=== PATIENT | male | born 2000 | race Caucasian/White ===

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

== ENCOUNTER 2018-10-27 20:42 | Emergency (ER) | payer OTHER, SELFPAY ==
[2018-10-27 20:48] VITALS: BP 131/77; PULSE 90; RESP 16; TEMP 36.6; O2SAT 98
--- NOTE | 2018-10-27 21:08 | ED.GENADUL_ITS ---
Discharge Plan Disposition Patient Disposition: HOME Condition: Good Discharge Details Chief Complaint: EyeProblem Clinical Impression: Acute eye pain Primary Care Provider: Pasha Lara ED Provider: Rachael Almaguer Home Meds and New Rx's Prescriptions: Continued ibuprofen 800 MG tablet 800 mg PO Q8H PRN (Reason: Pain) Qty: 15 RF: 0 triamcinolone acetonide [Nasacort] 55 mcg Aerosol,[place] INTRANASAL RF: 0 loratadine 10 mg Tablet 10 mg PO DAILY RF: 0 Discharge Instructions Instructions: Erythromycin (Into the eye), Eye Pain (ED) Additional Instructions: Please wash eye with baby shampoo, keep clean. Please use 1/2 inch erythromycin ointment to the left eye four times daily for the next 5 days. Please follow up with primary care next week for reevaluation. If you develop fevers/chills, increased pain, discharge, change in vision or other new/worsening symptoms please seek care urgently once again. Referrals: Pasha Lara MD [Primary Care Provider] - Medical Decision Making Patient is a 17-year-old male presents today, brought in by his mother, chief complaint of left eye pain. He reports a prior to arrival he was working with metal on a piece of metal that he was welding came back and striking the lateral aspect of the left eye. Mother reports that she did note a small piece of hot metal and was able to remove this for him. He has a small 1 mm blisters to the upper and lower lid at the corner of the eyelid. It does not appear to involve the eye itself. Denies any foreign body sensation. Blisters are slightly inside the eyelid. Fluorescein and tetracaine were used for further exam patient was examined with Wood's lamp. No uptake is noted on the conjunctiva. I do not see evidence of remnant foreign body. She will be placed prophylactically on erythromycin ophthalmic ointment. Duration how to apply this was discussed by nursing staff. He was given strict return precautions. Advise follow-up with lidar technician next week for reevaluation. Tetanus will be updated today. All other questions and concerns were addressed and they are in agreement this plan peer HPI General Mode of arrival: ambulatory . Date/Time Provider Initiated Documentation: 10/27/18 21:08 . Limitations to Documentation: no limitations . Information obtained by: patient, family (mother and brother) and RN notes reviewed . History of Present Illness 17 year old M presents to the emergency department with the chief complaint of left eye pain, described as moderate, with intensity rated at 6. Quality is described as burning, and is localized to the eyes. Patient reports no radiation. Patient started experiencing this minute(s) and it has been constant. No relieving factors improve symptom(s), No exacerbating factors reported . Patient notes no other symptoms.. Patient did receive the following treatments prior to arrival, other (FB noted on lateral eye lid removed by mother) Related Data Home Medications Medication Instructions Recorded Confirmed ibuprofen 800 mg PO Q8H PRN #15 tablet 12/17/16 12/08/17 loratadine 10 mg PO DAILY 10/27/18 10/27/18 triamcinolone acetonide [Nasacort] INTRANASAL 10/27/18 Previous Rx's Medication Instructions Recorded ibuprofen 800 mg PO Q8H PRN #15 tablet 12/17/16 Allergies Allergy/AdvReac Type Severity Reaction Status Date / Time cephalexin monohydrate Allergy Intermediate RASH Unverified 10/27/18 20:54 [From Keflex] Sulfa (Sulfonamide Allergy Mild FAMILY Unverified 10/27/18 20:54 Antibiotics) HISTORY OF ALLERGY adhesive tape AdvReac Intermediate Skin Rash Unverified 10/27/18 20:54 flu vaccine Allergy Hives Uncoded 10/27/18 20:54 General Stated Complaint: EyeProblem FRED: 4 Review of Systems Constitutional Reports as per HPI, Denies chills and Denies fever(s) Eyes Reports as per HPI, Denies blurry vision, Denies change in vision, Denies eye discharge, Denies floaters, Reports irritation (feels that lid is irritated), Denies loss of vision, Denies eye pain (pain to lateral eye lid) and Denies requires corrective lenses Musculoskeletal Reports as per HPI Integumentary/Breasts Reports as per HPI Neurologic Reports as per HPI, Denies loss of vision, Denies sensory deficit and Denies paresthesias [facility] Medical History ADD (attention deficit disorder) Plica syndrome, right knee Wears glasses Surgical History Arthroplasty of knee Repair, Incomplete Circumcision Family History Mother Hyperlipidemia Mental disorder Father Essential hypertension Brother Asthma GRANDPARENT Diabetes Heart disease Neoplasm Asthma Social History Smoking/Tobacco Use Status: Never Alcohol Intake: never Drug use: Never Do you feel safe at home: Yes Do you feel safe in your relationship?: Yes Exam Const General: cooperative, healthy appearing, comfortable, no acute distress and well developed Nutritional Appearance: average body habitus and well nourished Orientation: alert and awake Eyes Alignment and Position: alignment normal and position normal Periorbital: periorbital findings normal Eyelids: eyelid abnormality left upper eyelid and left lower eyelid (small blister, 1mm in diameter noted at lateal border both upper and lower) tenderness; without swelling Conjunctivae: conjunctivae normal Sclera: sclerae normal Cornea: corneas normal Pupils: PERRL and normal by confrontation EOM: EOM intact bilaterally Resp Effort & Inspection: normal respiratory effort, able to speak in complete sentences and no respiratory distress Cardio Rate: regular rate Rhythm: regular rhythm Neuro General: alert and awake Cognition: normal cognition Speech: speech normal Gait: normal gait Sensory Exam: no sensory deficits noted Psych Appearance: grossly normal and well kempt Mental Status: mental status grossly normal Speech and Movement: speech and movement normal Course Vital Signs Temperature 36.6 C 10/27/18 20:48 Pulse 90 10/27/18 20:48 Respiratory Rate 16 10/27/18 20:48 Blood Pressure 131/77 10/27/18 20:48 Pulse Oximetry 98 10/27/18 20:48 Temperature 36.6 C 10/27/18 20:48 Pulse 90 10/27/18 20:48 Respiratory Rate 16 10/27/18 20:48 Respiratory Effort Non-Labored 10/27/18 20:52 Blood Pressure 131/77 10/27/18 20:48 Blood Pressure Position Sitting 10/27/18 20:48 Pulse Oximetry 98 10/27/18 20:48 Oxygen Delivery Method Room Air 10/27/18 20:48 Oxygen Flow Rate 0 10/27/18 20:48 Pain Level 6 10/27/18 20:48
[2018-10-27] MEDS: Erythromycin Ophth Oint 3.5 GM TUBE OS (21:15)
== END 2018-10-27 21:23 | disposition home or self-care (01) ==
PROVIDERS: Emergency Provider Physician Assistant; PCP Pediatrics
DX: H57.12 Ocular pain, left eye (principal)
CPT/HCPCS: 90471; 99283

== ENCOUNTER 2018-12-28 12:07 | Emergency (ER) | payer OTHER, SELFPAY ==
[2018-12-28 12:25] VITALS: BP 135/79; PULSE 75; RESP 16; TEMP 37.1; O2SAT 98
--- NOTE | 2018-12-28 12:37 | DI.RAD_ITS ---
SYMPTOM/DIAGNOSIS: PAIN, ? FX LEFT ANKLE: Three views were obtained. The ankle mortise appears well maintained. No fracture is seen.
[2018-12-28 14:23] VITALS: BP 135/79; PULSE 75; RESP 16; TEMP 37.1; O2SAT 98
--- NOTE | 2018-12-30 20:33 | W.ED.GENAD ---
Discharge Plan Disposition Patient Disposition: HOME Condition: Good Discharge Details Chief Complaint: Orthopedic Clinical Impression: Ankle sprain Primary Care Provider: Pasha Lara ED Provider: Kaitlin Conrad Home Meds and New Rx's Prescriptions: No Action ibuprofen 800 MG tablet 800 mg PO Q8H PRN (Reason: Pain) Qty: 15 RF: 0 triamcinolone acetonide [Nasacort] 55 mcg Aerosol,[place] INTRANASAL RF: 0 loratadine 10 mg Tablet 10 mg PO DAILY RF: 0 Discharge Instructions Instructions: Ankle Sprain (ED) Additional Instructions: Rest. Activities as tolerated. Elevate injury to prevent swelling. Ice to the area of discomfort for 15 min. 3-5 times daily. Motrin every 8 hours with food or Tylenol every 6 hours for soreness if needed over the counter for comfort. Followup with orthopedic doctor as discussed if not improving in one week. Return for any worsening or concerns sooner if needed. Referrals: Chalo Tanner MD [ [facility] STAFF PHYSICIAN] - Discharge Data Discharge Date/Time-TO BE ENTERED AT DEPARTURE: 12/28/18 14:27 Medical Decision Making Patient presents for complaints of ankle injury, felt pop when rolled ankle. Patient limping gait. Mild pain with palpation laterally over the lateral malleolus. Full range of motion. X-ray evaluation unremarkable for fracture. Ligamentous injury remains in the differential. Discussed with patient. Rice encouraged. Splinting provided. Patient has his own crutches. Orthopedic doctor referral provided if not improved in 1 week. Patient reports his understanding and agrees with plan of care. HPI General Date/Time Provider Initiated Documentation: 12/28/18 13:02. HPI Narrative: Patient presents for complaints of left ankle injury. Patient reports he rolled his ankle laterally and felt a pop. Patient denies any other injury or concerns. Patient denies head neck or back pain. No numbness, tingling or weakness. Persistent pain with ambulation, limping gait. Mild swelling Related Data Home Medications Medication Instructions Recorded Confirmed ibuprofen 800 mg PO Q8H PRN #15 tablet 12/17/16 12/28/18 loratadine 10 mg PO DAILY 10/27/18 10/27/18 triamcinolone acetonide [Nasacort] INTRANASAL 10/27/18 Previous Rx's Medication Instructions Recorded ibuprofen 800 mg PO Q8H PRN #15 tablet 12/17/16 Allergies Allergy/AdvReac Type Severity Reaction Status Date / Time cephalexin monohydrate Allergy Intermediate RASH Unverified 12/28/18 12:30 [From Keflex] Sulfa (Sulfonamide Allergy Mild FAMILY Unverified 12/28/18 12:30 Antibiotics) HISTORY OF ALLERGY adhesive tape AdvReac Intermediate Skin Rash Unverified 12/28/18 12:30 flu vaccine Allergy Hives Uncoded 12/28/18 12:30 General Stated Complaint: Orthopedic FRED: 4 Review of Systems Review of Systems Narrative: CONSTITUTIONAL: The patient denies fevers, chills. EYES: Denies vision changes, blurry vision, or eye pain. ENT: Denies hearing changes, tinnitus, vertigo, sore throat. CARDIAC: Denies chest pain, SOB. RESPIRATORY: Denies cough, sputum. Denies difficulty breathing. GASTROINTESTINAL: Denies abdominal pain, changes in bowel, vomiting or nausea. GENITOURINARY: Denies dysuria, or frequency of urination. MUSCULOSKELETAL: Ankle pain, limping gait changes. NEUROLOGIC: Denies headaches, Denies focal weakness. Denies numbness. INTEGUMENT: Denies rashes. PSYCHIATRIC: Denies behavior changes. Denies anxiety or depression. ENDOCRINOLOGY: Denies fatigue. PSYCHIATRY: Denies depression, agitation or anxiety ROS Unobtainable: All systems reviewed & are unremarkable except as noted in HPI and below PFSH Medical History ADD (attention deficit disorder) resolved Plica syndrome, right knee Wears glasses Surgical History Arthroplasty of knee Repair, Incomplete Circumcision Family History Mother Hyperlipidemia Mental disorder Father Essential hypertension Brother Asthma GRANDPARENT Diabetes Heart disease Neoplasm Asthma Social History Smoking/Tobacco Use Status: Never Alcohol Intake: never Drug use: Never Do you feel safe at home: Yes Do you feel safe in your relationship?: Yes Exam Narrative Exam Narrative: CONST: Healthy appearing patient, in no acute distress. Well hydrated. Alert and alert. HENMT: Head nomocephalic, normal to inspection. Atraumatic. Hearing grossly normal. EYES: General normal appearance. Alignment normal. Eyelids normal. Conjunctiva normal. NECK: Normal visual inspection. FROM. Trachea midline. No Midline tenderness. CHEST: Normal insepection of the chest. RESP: Normal respiratory effort. Speaking full sentences. No cough. No audible wheezing. No retractions. CARDIO: No JVD. MUSCULOSKELETAL: Limping Gait. FROM of all extremities. Knee pain with palpation motion pain with palpation or calf pain with palpation. No Achilles tenderness. No medial malleolus tenderness. Mild lateral malleolus tenderness. No dorsal foot pain with palpation. Minimal swelling. Pulses intact and sensation intact distally. SKIN: Normal. Dry. No rashes. NEURO: Alert and awake. Speech clear. PSYCH: Normal affect. Cooperative. Course Vital Signs Vital signs: Vital Signs Temperature 37.1 C 12/28/18 12:25 Pulse 75 12/28/18 12:25 Respiratory Rate 16 12/28/18 12:25 Blood Pressure 135/79 12/28/18 12:25 Pulse Oximetry 98 12/28/18 12:25 Temperature 37.1 C 12/28/18 14:23 Temperature Source Skin 12/28/18 12:25 Pulse 75 12/28/18 14:23 Respiratory Rate 16 12/28/18 14:23 Respiratory Effort Non-Labored 12/28/18 12:29 Blood Pressure 135/79 12/28/18 14:23 Blood Pressure Position Sitting 12/28/18 12:25 Pulse Oximetry 98 12/28/18 14:23 Oxygen Delivery Method Room Air 12/28/18 12:25 Oxygen Flow Rate 0 12/28/18 12:25 Pain Level 2 12/28/18 14:23
== END 2018-12-28 14:27 | disposition home or self-care (01) ==
PROVIDERS: Emergency Provider Physician Assistant; PCP Pediatrics
DX: S93.402A Sprain of unspecified ligament of left ankle, initial encounter (principal); W50.1XXA Accidental kick by another person, initial encounter
CPT/HCPCS: 29515; 99283; 73610; 99282; L1902

== ENCOUNTER 2020-12-07 00:08 | Emergency (ER) | payer OTHER, SELFPAY ==
--- NOTE | 2020-12-07 | DI.RAD_ITS ---
Exam(s) XR ANKLE LT COMPLETE EXAM: XR ANKLE LT COMPLETE CLINICAL HISTORY: trauma. TECHNIQUE: 2D digital imaging was performed. COMPARISON: CR XR ANKLE LT COMPLETE from 12/28/2018 FINDINGS: Mild lateral soft tissue swelling. No evidence of fracture or widening of the mortise. Talar dome u nremarkable. Bone density normal. No osseous lesions. No osseous tarsal coalition. IMPRESSION: DATA REPOSITORY: RADIATION DOSE DELIVERED:
--- NOTE | 2020-12-07 00:09 | W.ED.GENAD ---
Discharge Plan Disposition Patient Disposition: HOME Condition: Good Discharge Details Clinical Impression: Left ankle sprain Primary Care Provider: Pasha Lara ED Provider: Reagan Khan Home Meds and New Rx's Prescriptions: No Action No Known Home Meds RF: 0 Discharge Instructions Instructions: Ankle Sprain (ED) Additional Instructions: Lace up brace as you are wearing. Ice on and off for the next couple of days. Acetaminophen or ibuprofen as needed for pain. Weight-bear as tolerated. Follow-up with primary care or occupational health if not improving over the next 1 to 2 weeks. Return to ED if any concerns. Referrals: Occupational Medicine [Outside] Primary Care Provider [Outside] Medical Decision Making X-ray of the left ankle was obtained. Per my read negative for fracture. Patient may be continue use of the lace up splint that he came in with. Ice on and off. Ibuprofen or acetaminophen as needed. Weight-bear as tolerated. Follow-up with primary care 1 to 2 weeks if not improving. Return to ED if problems. HPI General Mode of arrival: ambulatory. Date/Time Provider Initiated Documentation: 12/07/20 00:09. Limitations to Documentation: no limitations. Information obtained by: patient and RN notes reviewed. HPI Narrative: Patient presents to ED with left ankle injury. Patient stepped down and rolled his ankle at work last evening. He has been able to ambulate but with pain on the lateral side. Tonight noticed a lot of bruising and swelling. Mother wanted him to come in. He denies any other injury or complaint. Related Data Home Medications Medication Instructions Recorded Confirmed Unknown [No Known Home Meds] 12/07/20 12/07/20 Allergies Allergy/AdvReac Type Severity Reaction Status Date / Time cephalexin monohydrate Allergy Intermediate RASH Unverified 12/07/20 00:16 [From Keflex] Sulfa (Sulfonamide Allergy Mild FAMILY Unverified 12/07/20 00:16 Antibiotics) HISTORY OF ALLERGY adhesive tape AdvReac Intermediate Skin Rash Unverified 12/07/20 00:16 flu vaccine Allergy Hives Uncoded 12/07/20 00:16 General FRED: 4 Review of Systems Constitutional Constitutional: Denies fever(s) Cardiovascular Cardiovascular: Denies dyspnea Respiratory Respiratory: Denies cough and Denies dyspnea Musculoskeletal Musculoskeletal: Reports arthralgias, Reports joint swelling and Denies numbness Integumentary/Breasts Skin/Breast: Denies wounds Neurologic Neurologic: Denies numbness [facility] Medical History (Updated 12/07/20 @ 00:36 by Reagan Khan MD) ADD (attention deficit disorder) resolved Plica syndrome, right knee Wears glasses Surgical History Arthroplasty of knee Repair, Incomplete Circumcision Family History Mother Hyperlipidemia Mental disorder Father Essential hypertension Brother Asthma GRANDPARENT Diabetes Heart disease Neoplasm Asthma Social History Smoking/Tobacco Use Status: Never Smoking risk assessment performed?: Yes Alcohol Intake: never Drug use: Never Do you feel safe at home: Yes Do you feel safe in your relationship?: Yes Exam Narrative Exam Narrative: Const: WDWN male in NAD. HEENT: NC/AT. Normal facial exam. Eyes: Normal conjunctiva and sclera. Neck: Supple. Trachea midline. Lungs: Normal respiratory effort. Cor: RRR. Good DP pulses. Neuro: A+O x 3. Normal speech, mentation. Cranial nerves II - XII grossly intact. No gross motor or sensory deficit. Ext: No C/C/E. Swelling left lateral ankle with tenderness tip of the malleolus. Skin: Warm and dry with bruising lateral left ankle/foot.
[2020-12-07 00:14] VITALS: BP 148/88; PULSE 98; RESP 18; TEMP 37.1; O2SAT 98
--- NOTE | 2020-12-07 00:46 | DI.VRAD_ITS ---
PROCEDURE INFORMATION: Exam: XR Left Ankle Exam date and time: 12/07/2020 12:16 AM Age: 20 years old Clinical indication: Injury or trauma; Fall; Sprain or strain; Ankle; Left TECHNIQUE: Imaging protocol: XR Left ankle. Views: 3 or more views. COMPARISON: CR XR ANKLE LT COMPLETE 12/28/2018 12:51 PM FINDINGS: Bones/joints: No acute fracture or dislocation. Soft tissues: Mild soft tissue swelling around the lateral malleolus. IMPRESSION: 1. No acute fracture or dislocation. 2. Mild soft tissue swelling around the lateral malleolus. Dictated and Authenticated by: Amrit Canales MD. Ordering:SANTHOSH Kirk MD
== END 2020-12-07 01:00 | disposition home or self-care (01) ==
LOC: ER 00:44
PROVIDERS: Emergency Provider Emergency Medicine; PCP Pediatrics
DX: S93.492A Sprain of other ligament of left ankle, initial encounter (principal); X50.9XXA Other and unspecified overexertion or strenuous movements or postures, initial encounter; Y99.0 Civilian activity done for income or pay
CPT/HCPCS: 99283; 73610

== ENCOUNTER 2021-10-27 02:56 | Outpatient (CLI) | payer OTHER, SELFPAY ==
[2021-10-27 12:07] LABS: Calculated LDL 102 mg/dL (<100); Cholesterol 185 mg/dL (<200); HDL Cholesterol 34 mg/dL (40-60); Triglyceride 246 mg/dL (<150)
== END 2021-10-27 02:57 | disposition home or self-care (01) ==
PROVIDERS: PCP Nurse Practitioner Family; Visit Provider Nurse Practitioner Family
DX: E66.9 Obesity, unspecified (principal)
CPT/HCPCS: 36415; 80061

== ENCOUNTER 2021-10-27 11:22 | Emergency (ER) | payer OTHER, SELFPAY ==
[2021-10-27 11:48] VITALS: BP 148/101; PULSE 74; RESP 18; TEMP 37.2; O2SAT 99
--- NOTE | 2021-10-27 13:57 | ED.GENADUL_ITS ---
Discharge Plan Disposition Patient Disposition: HOME Condition: Stable Discharge Details Clinical Impression: Abrasion, corneal Primary Care Provider: Yovani Smart ED Provider: Ariadna Ward Home Meds and New Rx's Prescriptions: New polymyxin B sulf-trimethoprim [Polytrim] 10,000 unit- 1 mg/mL drops 1 drp ophthalmic (eye) Q3H 7 Days Qty: 10 0RF Rx Instructions: while awake; do not exceed 6 doses in 24 hours Discharge Instructions Instructions: Corneal Abrasion (ED) Additional Instructions: use drops as prescribed sunglasses when outside follow-up with haoe in 2 days with persistent pain Referrals: Yovani Smart, MARKETING ASSISTANT MANAGER [Primary Care Provider] - Discharge Data Discharge Date/Time-TO BE ENTERED AT DEPARTURE: 10/27/21 14:36 Medical Decision Making referral to ophthalmology placed on polytrim drops return precautions discussed visual acuity reviewed Medical Records Medical records reviewed: Yes I reviewed the patient's medical records. HPI General Date/Time Provider Initiated Documentation: 10/27/21 13:33 . HPI Narrative: 20-year-old male presents with report of something in left eye. Reports he was cutting wood with a saw when he felt something go underneath his safety glasses. States he removed a piece of glass but denies irritation. Denies pressure treated wood or vision change. 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 exacerbated with blinking per pt. Related Data Home Medications Medication Instructions Recorded Confirmed polymyxin B sulfate 10,000 1 drp ophthalmic (eye) Q3H 7 days 10/27/21 unit-trimethoprim 1 mg/mL eye #10 mL drops (Polytrim) Previous Rx's Medication Instructions Recorded polymyxin B sulfate 10,000 1 drp ophthalmic (eye) Q3H 7 days 10/27/21 unit-trimethoprim 1 mg/mL eye #10 mL drops (Polytrim) Allergies Allergy/AdvReac Type Severity Reaction Status Date / Time cephalexin monohydrate Allergy Intermediate RASH Unverified 10/27/21 11:52 [From Keflex] Sulfa (Sulfonamide Allergy Mild FAMILY Unverified 10/27/21 11:52 Antibiotics) HISTORY OF ALLERGY adhesive tape AdvReac Intermediate Skin Rash Unverified 10/27/21 11:52 flu vaccine Allergy Hives Uncoded 10/27/21 11:52 General Stated Complaint: EyeProblem FRED: 5 Review of Systems Narrative: Review of systems obtained x3 and negative aside from indication in hpi PFSH All Active Problems (Updated 10/27/21 @ 14:01 by WENDI Hollis) Abrasion, corneal (Acute) Obesity (BMI 30.0-34.9) (Acute) Skin lesion (Acute) Chronic patellofemoral pain of right knee (Acute 10/02/15) Medical History (Updated 10/27/21 @ 14:01 by WENDI Hollis) ADD (attention deficit disorder) resolved Plica syndrome, right knee Wears glasses Surgical History Arthroplasty of knee Repair, Incomplete Circumcision Family History (Updated 09/14/21 @ 14:28 by Naheed Strickland) Mother Hyperlipidemia History of basal cell cancer Depression Father No problems noted. Brother Asthma Maternal Grandfather Heart disease Hyperlipidemia Paternal Grandfather Heart disease Maternal Grandmother Breast cancer Depression Hyperlipidemia Paternal Grandmother Asthma Depression Diabetes Social History (Updated 09/14/21 @ 14:25 by Naheed Strickland) Smoking/Tobacco Use Status: Never Second Hand Exposure: Yes Smoking risk assessment performed?: Yes Alcohol Intake: current Alcohol Intake frequency: a few times a month Alcohol type: beer Drug use: Never Substance use type: does not use Caregiver/Support person: No Household members: family Housing: house Communication Needs: None Do you need help understanding health information?: Rarely Pets and animals: Yes Pets and animals: dog(s) Sexually active: No Do you think of yourself as: straight/heterosexual Current gender identity: male What is your relationship status?: never How often do you talk on the phone with friends or family?: three or more times per week How often do you get together with friends or relatives?: three or more times per week Do you belong to any clubs or organized social groups?: no Panel score (0-1 are the most socially isolated patients): 1 What type of physical activity do you participate in: walking Duration: 30-45 minutes/day Frequency: 1-2 times per week Cheli/Confucianism: No preference Seatbelt use: sometimes Helmet use: Yes Helmet use: always Drive intox or ride w/intox hazmat tanker driver: No Do you feel safe at home: Yes Do you feel safe in your relationship?: Yes Exam Const General: cooperative, comfortable and no acute distress Orientation: alert and oriented x3 Eyes Other: injected conjunctiva left no fb under lids no corneal abrasion noted PERRLA neg seidels sign EOMI Course Vital Signs Vital signs: Vital Signs Temperature 37.2 C 10/27/21 11:48 Pulse 74 10/27/21 11:48 Respiratory Rate 18 10/27/21 11:48 Blood Pressure 148/101 H 10/27/21 11:48 Pulse Oximetry 99 10/27/21 11:48 Temperature 37.2 C 10/27/21 11:48 Temperature Source Tympanic 10/27/21 11:48 Pulse 74 10/27/21 11:48 Respiratory Rate 18 10/27/21 11:48 Respiratory Effort 10/27/21 11:52 Blood Pressure 148/101 H 10/27/21 11:48 Blood Pressure Position Sitting 10/27/21 11:48 Pulse Oximetry 99 10/27/21 11:48 Oxygen Delivery Method Room Air 10/27/21 11:48 Oxygen Flow Rate 0 10/27/21 11:48 Pain Level 2 10/27/21 11:48
[2021-10-27] MEDS: Fluorescein STRIPS 100/BOX 1 MG (14:00)
[2021-10-27] MEDS: Tetracaine 0.5% 4 ML BTL OP (14:02)
[2021-10-27 14:05] VITALS: BP 148/101; PULSE 74; RESP 18; TEMP 37.2; O2SAT 99
== END 2021-10-27 14:36 | disposition home or self-care (01) ==
PROVIDERS: Emergency Provider Physician Assistant; PCP Nurse Practitioner Family
DX: S05.02XA Injury of conjunctiva and corneal abrasion without foreign body, left eye, initial encounter (principal); Z77.22 Contact with and (suspected) exposure to environmental tobacco smoke (acute) (chronic); X58.XXXA Exposure to other specified factors, initial encounter
CPT/HCPCS: 99283

== ENCOUNTER 2023-11-21 11:03 | Outpatient (CLI) | payer OTHER, SELFPAY ==
--- NOTE | 2023-11-21 10:45 | DI.RAD_ITS ---
Exam(s) XR KNEE RT 4V AP,LAT,KRISTINE,PAT EXAM: XR KNEE RT 4V AP,LAT,KRISTINE,PAT CLINICAL HISTORY: RIGHT KNEE PAIN. TECHNIQUE: 2D digital imaging was performed. Three views. COMPARISON: CR RIGHT KNEE 3 VIEWS from 12/17/2016 FINDINGS: BONES: No acute fracture is present. No bony destructive lesion is seen. JOINTS: The knee is normally aligned. No joint effusion is seen. Joint spaces are maintained. SOFT TISSUE: Normal. IMPRESSION: Unremarkable radiographs of the right knee. DATA REPOSITORY: RADIATION DOSE DELIVERED:
== END 2023-11-21 11:04 | disposition home or self-care (01) ==
LOC: DIORS 11:03
PROVIDERS: PCP Nurse Practitioner Family; Visit Provider Physician Assistant
DX: M25.561 Pain in right knee (principal)
CPT/HCPCS: 73564

== ENCOUNTER 2024-02-02 23:09 | Emergency (ER) | payer OTHER, SELFPAY ==
[2024-02-02 23:12] VITALS: BP 139/87; PULSE 86; RESP 18; TEMP 36.6; O2SAT 99
--- OUTSIDE RECORDS SUMMARY | 2024-02-02 23:22 | XMS_ITS | Encounter Summary ---
Author Organization [facility] [place] [address] Care Team Providers Care Explosive Operator Bomb Name Role Phone Yovani Smart APRN Primary Care Provider [phone]- [phone] Reason for Referral * Consultation (Routine) - Closed Specialty Diagnoses / Procedures Referred By Genie morales Referred To Contact Dermatology Diagnoses Skin lesion Yovani Smart APRN [address] [place] [address] [facility] Dermatology [address] [place] [address] Referral ID Status Reason Start Date Expiration Date V isits Requested Visits Authorized [id number] Closed Consult, Test & Treat PCP Updated and/or Approved 10/28/2021 10/28/2022 6 6 Encounter Details Date Type Department Care Team (Late st Contact Info) Description 10/28/2021 Transcribe Orders eDH Incoming Referrals [phone] Yovani Smart APRN [address] [place], [place] [id number] Skin lesion Social History Tobacco Use Types Packs/Day Years Used Date Smoking Tobacco: Never Assessed Sex and Gender Information Value Date Recorded Sex Assigned at Not on file Gender Identity Not on file Sexual Orientation Not on file documented as of this encounter Plan of Treatment Scheduled Referrals Name Type Priority Associated Diagnoses Order Schedule Referral to Dermatology Outpatient Referral Routine Skin lesion Ordered: 10/28/2021 documented as of this encounter Visit Diagnoses Diagnosis Skin lesion Unspecified disorder of skin and subcutaneous tissue documented in this encounter Care Teams Explosive Operator Bomb Relationship Specialty Start Date End Date Yovani Smart, STAFF DEVELOPER [address] [place] [address] PCP - General Family Medicine 10/28/21 documented as of this encounter
--- OUTSIDE RECORDS SUMMARY | 2024-02-02 23:22 | XMS_ITS | Encounter Summary ---
Author Organization [facility] Address [facility] [place] [address] Care Team Providers Care Machine Shorthand Reporter Name Role Phone Yovani Smart APRN Primary Care Provider [phone]- [phone] Reason for Visit * Consultation (Routine) - Closed Specialty Diagnoses / Procedures Referred By Genie morales Referred To Contact Dermatology Diagnoses Skin lesion Yovani Smart APRN [address] [place] [address] [facility] Dermatology [address] [place] [address] Referral ID Status Reason Start Date Expiration Date V isits Requested Visits Authorized [id number] Closed Consult, Test & Treat PCP Updated and/or Approved 10/28/2021 10/28/2022 6 6 Encounter Details Date Type Department Care Team (Late st Contact Info) Description 02/01/2022 4:00 PM EDT Office Visit Dermatology at [facility] [address] [place] [address] Yennifer Valdez MD [facility] [address] [address] Scar; Benign neoplasm of skin of right upper extremity Social History Tobacco Use Types Packs/Day Years Used Date Smoking Tobacco: Never Assessed Sex and Gender Information Value Date Recorded Sex Assigned at Not on file Gender Identity Not on file Sexual Orientation Not on file documented as of this encounter Progress Notes * Yennifer Valdez MD - 02/01/2022 4:00 PM EDT Images from the original note were not included. DEPARTMENT OF DERMATOLOGY Medical Dermatology Clinic Note Provider: Yennifer Valdez MD Patient's preferred name Darell Preferred contact method for results [x]Phone []myD-H []Letter Detailed phone message OK? Yes Are there any other people with whom we may discuss your care? Past Medical History Date, location, treatment Melanoma No Dysplastic nevi No SCC No BCC No AKs No UV Exposure & Protection + history of blistering sunburn Other relevant past medical history No Family History Details Melanoma Yes - Aunt ? NMSC Yes - Mother; BCC Other relevant family history No Social History Occupation: Hobbies: Other: Pre-Procedure Questions Details Allergy to lidocaine, epinephrine, Dermabond, chlorhexidine, or adhesives No Bleeding disorder or blood thinners No Implanted devices (Pacemaker, defibrillator, deep brain stimulator, cochlear implant) No History of Present Illness: Darell Greco is a 21 y.o. Patient is referred to the clinic at the request of Yovani Smart for a evaluation of a lesion located on the right shoulder and on theupper right back.. Patient reports the spot on the left shoulder has been present for 5 years and is asymptomatic. Patient reports the spot on the right shoulder has been present for 2 years and can be itchy. Review of Systems: General: Feeling well. Skin: No other skin concerns. Medications: Reviewed in eD-H Allergies: Reviewed in eD-H Skin Examination: Waist-up skin examination: Patient was asked to disrobe to the level of their comfort. Patient elected to remain clothed below the waist. Examination of the scalp, hair, face, ears, neck, back, chest, abdomen, and upper extremities was normal with the exception of the findings below. Assessment/Plan #. Scar - On the left posterior shoulder flesh colored scar-like papule - in area of prior trauma per pt - Reassured of benign nature #. Dermatofibroma - Firm papule, centrally raised and sclerotic, with peripheral hyperpigmentation and dimpling with lateral pressure on the right shoulder. - Discussed that these are benign fibrous (scar-like) lesions. No treatment necessary. Other: ??? N/A RTC: PRN Scribe attestation: MARVIN Arreola has performed the documentation for this encounter in the presence of and acting as a scribe for Yennifer Valdez MD. I performed the above scribed service and agree with the accuracy of the documentation in this encounter. Reviewed and signed by: Yennifer Valdez MD Dermatology [facility] Patient seen and evaluated with staff touch up worker: Judson Alcazar MD Department of Dermatology [facility] * Judson Alcazar MD - 02/01/2022 4:00 PM EDT I directly supervised Dr. Valdez in the care of this patient. I saw and evaluated this patient with Dr. Valdez She presented the history and physical exam details to me, then we saw the patient together and I confirmed these findings. I agree with details as written. My physical examination confirms her findings. The assessment and plan were formulated in discussion with me at the time of visit and I agree withthem as documented. Judson Alcazar MD FAAD Staff Physician Department of Dermatology documented in this encounter Plan of Treatment Scheduled Referrals Name Type Priority Associated Diagnoses Order Schedule Referral to Dermatology Outpatient Referral Routine Skin lesion Ordered: 10/28/2021 documented as of this encounter Visit Diagnoses Diagnosis Scar Scar condition and fibrosis of skin Benign neoplasm of skin of right upper extremity documented in this encounter Care Teams Machine Shorthand Reporter Relationship Specialty Start Date End Date Yovani Smart, SENIOR PRINCIPAL PROCESS ENGINEER [address] [place] [address] PCP - General Family Medicine 10/28/21 documented as of this encounter
--- OUTSIDE RECORDS SUMMARY | 2024-02-02 23:22 | XMS_ITS | Clinical Summary ---
[place] [address] Care Team Providers Care Fire Control Officer Name Role Phone Yovani Smart APRN Primary Care Provider +1- [phone] Social History Tobacco Use Types Packs/Day Years Used Date Smoking Tobacco: Never Assessed Sex and Gender Information Value Date Recorded Sex Assigned at Not on file Gender Identity Not on file Sexual Orientation Not on file Plan of Treatment Health Maintenance Due Date Last Done Comments HPV vaccine (1 - Male 3-dose series) 2013 HIV screen 2016 Hepatitis C Screening 2016 Hepatitis B vaccine (0-59 yrs) (1) 2017 Tetanus/Diphtheria/Pertussis Vaccines (1 - Tdap) 11/13 Covid-19 Vaccine (1 - 2022-24 season) 2023 Influenza (Flu) vaccine (1 o f 1 - Influenza standard series) 12/18/2023 Care Teams Fire Control Officer Relationship Specialty Start Date End Date Yovani Smart APRN [address] [place] [address] PCP - General Family Medicine 10/28/21
--- NOTE | 2024-02-02 23:25 | W.ED.GENAD ---
Discharge Plan Disposition Patient Disposition: Home Condition: Good Discharge Details Clinical Impression: Left shoulder strain Primary Care Provider: Yovani Smart ED Provider: Marion Horan Home Meds and New Rx's Prescriptions: Continued triamcinolone acetonide 0.1 % cream 1 applic topical BID Qty: 80 0RF Discharge Instructions Instructions: Muscle Strain ED Additional Instructions: Tylenol and ibuprofen over the counter for pain; follow the directions on the bottle. Call your primary care doctor tomorrow to schedule an appointment for within the next three days to followup on your visit here. Return to the emergency department for new or worsening symptoms including new/different/worse pain, numbness or weakness in your arm, or if you have any other concerns. Stand Alone Forms: Work Release HPI General Mode of arrival: ambulatory. Date/Time Provider Initiated Documentation: 02/02/24 23:16. Limitations to Documentation: no limitations. Information obtained by: patient. HPI Narrative: 23yo previously healthy male presenting for left shoulder pain. 4 days ago was 'horsing around', fell forward and caught himself landing on his outstretched left arm. Since then has had left shoulder pain, worse with lifting, persistent and mildly improving. Ibuprofen helps. Was at work today and pain much worse when lifting boxes. No numbness, tingling, weakness, wrist pain, lower arm pain, or other concerns. Denies any other pain or injuries. Related Data Home Medications ?Medication ?Instructions ?Recorded ?Confirmed triamcinolone acetonide 0.1 % 1 applic topical BID #80 grams 10/31/23 02/02/24 topical cream Previous Rx's ?Medication ?Instructions ?Recorded triamcinolone acetonide 0.1 % 1 applic topical BID #80 grams 10/31/23 topical cream Allergies Allergy/AdvReac Type Severity Reaction Status Date / Time cephalexin monohydrate (From Allergy Intermediate RASH Unverified 02/02/24 23:16 Keflex) Sulfa (Sulfonamide Allergy Mild FAMILY Unverified 02/02/24 23:16 Antibiotics) HISTORY OF ALLERGY adhesive tape AdvReac Intermediate Skin Rash Unverified 02/02/24 23:16 flu vaccine Allergy Hives Uncoded 02/02/24 23:16 General Stated Complaint: Orthopedic FRED: 4 Review of Systems Narrative: see HPI Exam Narrative Exam Narrative: General: Alert, well appearing, well nourished, in no acute distress. Head: Normocephalic, atraumatic Neck: Trachea midline, ?Neck supple. Cardiac: ?No cyanosis. Brisk capillary refill. 2+ radial pulses, symmetric. Resp: No respiratory distress. Speaking in full sentences. Abd: ?Non-distended, Extremities: ?No deformities.? No peripheral edema. 5/5 strength symmetric bilateral UE including shoulder abductors/adductors, elbow flexors/extensors, wrist flexors/extensors, finger abductors/adductors, LUE: No bony tenderness at clavicle, scapula, shoulder, elbow, or wrist including no scaphoid tenderness. Full active ROM at shoulder. Mildly TTP anterior left shoulder into left pectoral. Neurologic: GCS 15. ? Moves all extremities freely against gravity. Sensation intact and symmetric multiple dermatomes bilateral upper extremities. Course Vital Signs Vital signs: Vital Signs Temperature 36.6 C 02/02/24 23:12 Pulse 86 02/02/24 23:12 Respiratory Rate 18 02/02/24 23:12 Blood Pressure 139/87 02/02/24 23:12 Pulse Oximetry 99 02/02/24 23:12 Temperature 36.6 C 02/02/24 23:12 Temperature Source Temporal Artery Scan 02/02/24 23:12 Pulse 86 02/02/24 23:12 Respiratory Rate 18 02/02/24 23:12 Respiratory Effort Normal, Non-Labored 02/02/24 23:15 Blood Pressure 139/87 02/02/24 23:12 Blood Pressure Position Sitting 02/02/24 23:12 Pulse Oximetry 99 02/02/24 23:12 Oxygen Delivery Method Room Air 02/02/24 23:12 Oxygen Flow Rate 0 02/02/24 23:12 Pain Level 4 02/02/24 23:16 Medical Decision Making 23yo previously healthy male presenting for left shoulder pain; 4 days ago was 'horsing around', fell forward and caught himself landing on his outstretched left arm. Vital signs reassuring on arrival. Neurovascular intact on exam. No bony tenderness including no scaphoid tenderness. Full ROM at left shoulder. Mildly TTP anterior left shoulder into left pectoral. History not suggestive of ACS. Exam not concerning for dislocation or fracture. Would not get EKG, plain films, or labs. Likely musle strain/sprain. Advised continued symptomatic treatment at home; will give tylenol and IM toradol here. Provided with work note. Discharged home; discharge instructions and return precautions were reviewed with patient who verbalized understanding. All questions were answered and he is in full agreement with the plan. Quality:SDOH Health Related Social Needs: No Data to Display PFSH All Active Problems (Updated 02/02/24 @ 23:32 by Marion Horan MD) Left shoulder strain (Acute) Bumps on skin (Acute) Obesity (BMI 30.0-34.9) (Acute) Chronic patellofemoral pain of right knee (Acute 10/02/15) Medical History (Updated 02/02/24 @ 23:32 by Marion Horan MD) Wears glasses Plica syndrome, right knee ADD (attention deficit disorder) resolved Surgical History Repair, Incomplete Circumcision Arthroplasty of knee Family History (Updated 09/14/21 @ 14:28 by Naheed Strickland) Mother Hyperlipidemia History of basal cell cancer Depression Father No problems noted. Brother Asthma Maternal Grandfather Heart disease Hyperlipidemia Paternal Grandfather Heart disease Maternal Grandmother Breast cancer Depression Hyperlipidemia Paternal Grandmother Asthma Depression Diabetes Social History (Updated 09/14/21 @ 14:25 by Naheed Strickland) Smoking/Tobacco Use Status: Never Tobacco: How many years used: 0 Second Hand Exposure: Yes Smoking risk assessment performed?: Yes Alcohol Intake: current Alcohol Intake frequency: a few times a month Alcohol type: beer Drug use: Never Substance use type: does not use Caregiver/Support person: No Household members: family Housing: house Communication Needs: None Do you need help understanding health information?: Rarely Pets and animals: Yes Pets and animals: dog(s) Sexually active: No Do you think of yourself as: straight/heterosexual Current gender identity: male What is your relationship status?: never How often do you talk on the phone with friends or family?: three or more times per week How often do you get together with friends or relatives?: three or more times per week Do you belong to any clubs or organized social groups?: no Panel score (0-1 are the most socially isolated patients): 1 What type of physical activity do you participate in: walking Duration: 30-45 minutes/day Frequency: 1-2 times per week Cheli/Jehovah'S Witness: No preference Seatbelt use: sometimes Helmet use: Yes Helmet use: always Drive intox or ride w/intox river driver: No Do you feel safe at home: Yes Do you feel safe in your relationship?: Yes
[2024-02-02] MEDS: Acetaminophen 500 MG TAB 1000 MG PO (23:38)
[2024-02-02] MEDS: Ketorolac 15 MG/ML VIAL IM (23:38)
== END 2024-02-02 23:38 | disposition home or self-care (01) ==
PROVIDERS: Emergency Provider Student in an Organized Health Care Education/Training Program; PCP Nurse Practitioner Family
DX: S46.912A Strain of unspecified muscle, fascia and tendon at shoulder and upper arm level, left arm, initial encounter (principal); W19.XXXA Unspecified fall, initial encounter
CPT/HCPCS: 96372; 99284; J1885

== ENCOUNTER 2025-01-25 03:03 | Outpatient (CLI) | payer OTHER, SELFPAY ==
[2025-01-25 12:55] LABS: HCT 48.8 % (40.0-50.0); HGB 16.0 g/dL (13.5-17.5); MCH 26.0 pg (27.0-33.0); MCHC 32.8 % (32.0-36.0); MCV 79 fL (80-95); MPV 9.4 fL (8.0-11.0); Platelet Count 267 10^3/uL (130-400); RBC 6.15 10^6/uL (4.36-5.78); RDW 13.6 % (11.8-14.1); RDW-SD 38.6 fL; WBC 6.94 10^3/uL (4.4-10.8)
[2025-01-25 13:04] LABS: Hemoglobin A1C 5.5 % (<5.7)
[2025-01-25 13:31] LABS: ALT 69 U/L (16-63); AST 18 U/L (15-37); Albumin 3.6 g/dL (3.4-5.0); Alkaline Phosphatase 100 U/L (46-116); Anion Gap 8.0 mmol/L (3-11); BUN 14 mg/dL (7-18); Bilirubin, Total 0.5 mg/dL (0.2-1.0); CO2 27.0 mmol/L (21.0-32.0); Calcium 8.9 mg/dL (8.5-10.1); Calculated LDL 138 mg/dL (<100); Chloride 104 mmol/L (98-107); Cholesterol 196 mg/dL (<200); Estimated GFR 125.17 (mL/min/1.73m2); Glucose 104 mg/dL (74-106); HDL Cholesterol 36 mg/dL (>or=40); Potassium 4.4 mmol/L (3.5-5.1); Sodium 139 mmol/L (136-145); Total Protein 7.6 g/dL (6.4-8.2); Triglyceride 113 mg/dL (<150)
== END 2025-01-25 03:04 | disposition home or self-care (01) ==
PROVIDERS: PCP Nurse Practitioner Family; Visit Provider Nurse Practitioner Family
DX: D58.2 Other hemoglobinopathies (principal); Z13.220 Encounter for screening for lipoid disorders; Z13.1 Encounter for screening for diabetes mellitus; I10 Essential (primary) hypertension
CPT/HCPCS: 36415; 80053; 80061; 85027; 83036